=== PATIENT | female | born 1970 | race Caucasian/White ===

== ENCOUNTER → 2022-02-19 | Day surgery (SDC) | payer BC ==
[~2022-02-19] MED LIST: PANT40TA6 PO
[2022-02-19 13:10] VITALS: BP 137/62
== END | disposition home or self-care (01) ==
LOC: SURG 12:16
PROVIDERS: ATTEND Anesthesiology
DX: M51.26 Other intervertebral disc displacement, lumbar region (principal); M51.36 Other intervertebral disc degeneration, lumbar region; M47.816 Spondylosis without myelopathy or radiculopathy, lumbar region
CPT/HCPCS: 99204; G0463

== ENCOUNTER → 2022-03-19 | Day surgery (SDC) | payer BC ==
[~2022-03-19] MED LIST changes: +0.9 % SODIUM CHLORIDE 10 ML VIAL. ONE; +DEXAMETHASONE SOD PHOS 10 MG/ML VIAL. ONE; +IOHEXOL 300 MG/ML 50 ML VIAL. ONE; +LIDOCAINE 1% PF 30 ML VIAL. ONE
[2022-03-19 11:18] VITALS: BP 145/80
== END | disposition home or self-care (01) ==
LOC: SURG 10:23
PROVIDERS: ATTEND Anesthesiology
DX: M54.16 Radiculopathy, lumbar region (principal); F32.9 Major depressive disorder, single episode, unspecified; M51.26 Other intervertebral disc displacement, lumbar region; M51.36 Other intervertebral disc degeneration, lumbar region; Z82.49 Family history of ischemic heart disease and other diseases of the circulatory system
CPT/HCPCS: 62323; A4209; A4657; A4930; J1100; Q9967